=== PATIENT | male | born 1960 ===

== ENCOUNTER 2023-06-28 09:16 | Outpatient (AMB) | payer MEDICARE, MEDICAID, SELFPAY ==
[2023-06-28 09:29] VITALS: BP 96/62; PULSE 63; O2SAT 96; BMI 25.5
--- NOTE | 2023-06-28 09:29 | MHC.OFFVIS ---
Intake Vital Signs 06/28/23 09:29 Height 5 ft 6 in Weight 158 lb BMI 25.5 BP 96/62 Blood Pressure Location Lt brachial Position Sitting Pulse 63 Pulse Source Pulse Oximeter Pulse Oximetry (%) 96 Oxygen Delivery Method Room Air Intake Visit Reasons: ENP-Cervical radiculitis-confirmed Intake Note: Pt reports to office for new patient evaluation. Pt is here with daughter Rose. Pt reports he's had 2 c-spine surgeries recently and now suffers from neuropathy. He is in pain intermittently, achy and a 4/10 on a pain scale. Allergies tylenol with codeine Allergy (Mild, Uncoded 06/28/23 09:37) Hallucinations Medication List - Last Reconciled 06/28/23 by Ivon Garcia MD cyclobenzaprine 10 mg PO TID pregabalin (Lyrica) 150 mg PO TID HPI HPI Comments History of Present Illness Details 63y/o male with h/o cervical surgeries in 2016 and 2017 comes for residual deficits. He had his surgery in [place] and since then he still has frequent falls, weakness of right leg and UE. He also c/o numbness in his right UE and LE. He still ahs neck pain but now he has severe lumbar and T spine. He is scheduled pain management and neurosurgery.He is scheduled for Ts pine LS MRI. His recent C spine MRI shows spinal stenosis as per his daughter.He also has urinary incontinence . [facility] Medical History (Updated 06/28/23 @ 10:19 by Ivon Garcia MD) Back pain Anxiety Depression Weakness of right leg Weakness of right upper extremity Cervical spinal stenosis Surgical History H/O cervical spine surgery Family History Mother No problems noted. Brother Brain cancer Sister Breast CA Social History Household Members: Family Household Members Other:: Daughter, grandson Housing: Other Housing Other:: [facility] Alcohol intake: former Patient Tobacco Use Status: Former Tobacco user Years Smoked: quit 20 years ago Substance Use Type: Marijuana Substance Use Frequency: Daily Last Used Substance: Just Prior to Admission Review of Systems Const Reports fatigue, Reports frequent falls and Reports malaise ENT Reports neck pain Reports urinary incontinence Musc Reports back pain, Reports muscle weakness, Reports neck pain, Reports numbness and Reports tingling Neuro Reports frequent falls, Reports numbness and Reports tingling Psych Reports anxiety and Reports depression Endo Reports fatigue Physical Exam Vital Signs: Last Vital Signs Pulse 63 06/28/23 09:29 BP 96/62 06/28/23 09:29 Pulse Ox 96 06/28/23 09:29 Oxygen Delivery Method Room Air 06/28/23 09:29 BMI result Body Mass Index 25.5 Const Orientation/consciousness: patient oriented x3 Eyes Pupils: Equal, round and reactive pupils present Neuro Other: right UE 3-4/5 Right LE 3-4/5 Tone normal General: patient oriented x3 Cranial nerves: Yes Facial sensation intact/muscles of mastication intact, Yes Equal, round and reactive pupils present, Yes Bilaterally intact EOM present, Yes Nystagmus not present, Yes Normal facial strength present, Yes Symmetric palate elevation present and Yes Ability to bilaterally elevate shoulders present Cognition (Neuro): normal cognition Gait exam (Neuro): Assistive device used and Other gait observations present (with walker- right LE circumduction) Deep tendon reflexes (DTR's): Right triceps reflex intensity grade: 3+, Left triceps reflex intensity grade: 2+, Rt Biceps (C5, C6): 3+, Left biceps reflex intensity grade: 2+, Right brachioradialis reflex intensity grade: 3+, Left brachioradialis reflex intensity grade: 2+, Right patellar reflex intensity grade: 3+ and Left patellar reflex intensity grade: 2+ Coordination: [id number] test normal Assessment & Plan Assessment & Plan (1) Weakness of right upper extremity: Comment: residual from C spine spinal stenosis and ? compression Code(s): R29.898 - Other symptoms and signs involving the musculoskeletal system (2) Weakness of right leg: Code(s): R29.898 - Other symptoms and signs involving the musculoskeletal system (3) Cervical spinal stenosis: Code(s): M48.02 - Spinal stenosis, cervical region (4) Back pain: Code(s): M54.9 - Dorsalgia, unspecified Plan His right UE and LE weakness is residual from C spine stenosis . I will review his recent C spine MRI F/u with neurosurgery and pain management I suggested PT for gait training and balance. Orders: Orders PT Evaluation and Treatment Today M48.02 - Spinal stenosis, cervical region, R29.898 - Other symptoms and signs involving the musculoskeletal system Coding Level of Care Code New Pt Level 4 (84328) Diagnoses Weakness of right upper extremity R29.898 Weakness of right leg R29.898 Cervical spinal stenosis M48.02 Back pain M54.9
== END 2023-06-28 10:27 | disposition home or self-care (01) ==
PROVIDERS: Visit Provider Psychiatry & Neurology Neurology
DX: R29.898 Other symptoms and signs involving the musculoskeletal system (principal); M48.02 Spinal stenosis, cervical region; M54.9 Dorsalgia, unspecified
CPT/HCPCS: 99204

== ENCOUNTER → 2023-06-28 09:16 | Outpatient (BNVA) | payer MEDICAID, SELFPAY | PROVIDERS: Visit Provider Psychiatry & Neurology Neurology ==